=== PATIENT | male | born 1965 ===

== ENCOUNTER 2024-02-03 13:24 | Outpatient (AMB) | payer OTHER, SELFPAY ==
[2024-02-03 13:29] VITALS: BP 112/68; PULSE 88; O2SAT 98
--- NOTE | 2024-02-03 13:29 | MHC.OFFVIS ---
Vital Signs 02/03/24 13:29 Weight 221 lb 9.033 oz BP 112/68 Blood Pressure Location Rt brachial Position Sitting Pulse 88 Pulse Source Pulse Oximeter Pulse Oximetry (%) 98 Oxygen Delivery Method Room Air Intake Visit Reasons: Pulmonary Nodule Allergies No Known Allergies Allergy (Verified 02/03/24 13:34) Medication List - Last Reconciled 02/03/24 by Sherrie Chin LPN albuterol sulfate 90 mcg/actuation 2 puffs inhalation Q4-6H PRN ztotvvcqbb-lrfjpdlar-fynxhtpnl 5-160-12.5 mg 1 tab PO DAILY aspirin (Adult Low Dose Aspirin) 81 mg PO DAILY ezetimibe 10 mg PO DAILY fluticasone propion-salmeterol 250-50 mcg/dose (Advair Diskus) 1 inh inhalation BID metoprolol succinate ER 50 mg PO BID montelukast 10 mg PO BEDTIME rosuvastatin (Crestor) 40 mg PO DAILY HPI Comments Details: The patient is here for a pulmonary follow up visit. He has been doing better. Back 15 months ago he started complainng of exertional SSCP and he ended up requiring Quadruple cardiac bypass surgery. He did well. He continues to exercise reqularly. He does have wheezing at times. Does have a powedered inhaler, Wixela, but does not work well for him. We did review his CT chest deomsontrating small nodules, subcentimeter in size. Also with post operative changes and chronic bronchitis. We will plan to repeat CT chest 1 yr from now. [facility] Medical History (Updated 02/03/24 @ 22:49 by Frankie Gilliam MD) CAD (coronary artery disease) of artery bypass graft Asthma Pulmonary nodules Social History (Updated 02/03/24 @ 13:38 by Sherrie Chin LPN) Patient Tobacco Use Status: Never used Tobacco Review of Systems Const Denies fever(s) Eyes Reports no additional complaints ENT Reports no additional complaints Card Denies chest pain, Denies dyspnea and Denies dyspnea on exertion Resp Denies dyspnea and Denies dyspnea on exertion GI Reports no additional complaints Musc Reports no additional complaints Skin/Breast Denies rash Otto/Lymph Reports no additional complaints Aller/Immun Reports no additional complaints Physical Exam Vital Signs: Last Vital Signs Pulse 88 02/03/24 13:29 BP 112/68 02/03/24 13:29 Pulse Ox 98 02/03/24 13:29 Oxygen Delivery Method Room Air 02/03/24 13:29 Const General: comfortable HEENT Head: Yes normocephalic Neck Neck: Yes supple Chest Chest palpation & inspection: normal inspection of the chest Resp Effort & Inspection: normal respiratory effort Auscultation: clear to auscultation bilaterally Cardio Heart sounds: S1 normal heart sound present and S2 normal heart sound present GI Palpation (GI): Soft to palpation Skin General skin exam: no rashes or lesions noted Extrem General: Yes no clubbing, cyanosis or edema Assessment & Plan Assessment & Plan (1) Pulmonary nodules: Code(s): R91.8 - Other nonspecific abnormal finding of lung field Category: Medical (2) Asthma: Code(s): J45.909 - Unspecified asthma, uncomplicated Category: Medical Qualifiers: Asthma severity: moderate Asthma persistence: persistent Asthma complication type: uncomplicated Qualified Code(s): J45.40 - Moderate persistent asthma, uncomplicated [facility] Orders CT chest wo IV con 1 Year R91.8 - Other nonspecific abnormal finding of lung field Medications: New budesonide-formoterol 160-4.5 mcg/actuation (Symbicort) 2 puffs inhalation BID 30 days 10.2 grams 11RF J44.89 - Other specified chronic obstructive pulmonary disease Coding Level of Care Code New Pt Level 4 (61981) Diagnoses Pulmonary nodules R91.8 Moderate persistent asthma without complication J45.40 Asthma severity: moderate Asthma persistence: persistent Asthma complication type: uncomplicated Time Spent (min) 35
== END 2024-02-03 14:11 | disposition home or self-care (01) ==
PROVIDERS: PCP Internal Medicine; Referring Provider Internal Medicine; Visit Provider Hospitalist
DX: R91.8 Other nonspecific abnormal finding of lung field (principal); J45.40 Moderate persistent asthma, uncomplicated
CPT/HCPCS: 99204

== ENCOUNTER 2025-01-29 10:23 | Outpatient (AMB) | payer OTHER, SELFPAY ==
[2025-01-29 10:26] VITALS: BP 130/72; PULSE 75; O2SAT 96; BMI 29.2
--- NOTE | 2025-01-29 10:26 | A.OFFVIS_ITS ---
Vital Signs 01/29/25 10:26 Height 6 ft 1 in Weight 221 lb 9.033 oz BMI 29.2 BP 130/72 Blood Pressure Location Lt brachial Position Sitting Pulse 75 Pulse Source Pulse Oximeter Pulse Oximetry (%) 96 Oxygen Delivery Method Room Air Intake Visit Reasons: Pulmonary Nodule/CT Chest Follow Up [employer] Required: No Accounts Payable Processor: Accounts Payable Processor offered & declined Allergies No Known Allergies Allergy (Verified 01/29/25 10:28) HPI Comments Details: The patient is here for a pulmonary follow up visit. He has been doing better. Back 15 months ago he started complainng of exertional SSCP and he ended up requiring Quadruple cardiac bypass surgery. He did well. He continues to exe rcise reqularly. He does have wheezing at times. Does have a powedered inhaler, Wixela, but does not work well for him. We did review his CT chest deomsontrating small nodules, subcentimeter in size. Also with post operative changes and chronic bronchitis. We will plan to repeat CT chest 1 yr from now. 01/29/2025 the patient is here for pulmonary follow-up visit. Overall the patient has been doing well. Denies any wheezing or shortness of breath. He does use his inhaler with good effect. Denies any respiratory limitations at this time. He did undergo a CT scan of the chest November 2024 at [facility] which I personally reviewed and I compared to his CAT scan from 2020 from [facility]. His pulmonary nodules appear to be stable and unchanged therefore we do not need any serial CAT scans at this point. Will consider reassessing couple years. Otherwise the patient is doing good he will continue with the current respiratory medications and will follow-up as needed. [facility] Medical History (Updated 02/03/24 @ 22:49 by Frankie Gilliam MD) CAD (coronary artery disease) of artery bypass graft Asthma Pulmonary nodules Social History Patient Tobacco Use Status: Never used Tobacco Review of Systems Const Denies fever(s) Eyes Reports no additional complaints ENT Reports no additional complaints Card Denies chest pain, Denies dyspnea and Denies dyspnea on exertion Resp Denies dyspnea and Denies dyspnea on exertion GI Reports no additional complaints Musc Reports no additional complaints Skin/Breast Denies rash Otto/Lymph Reports no additional complaints Aller/Immun Reports no additional complaints Physical Exam Vital Signs: Last Vital Signs Pulse 75 01/29/25 10:26 BP 130/72 01/29/25 10:26 Pulse Ox 96 01/29/25 10:26 Oxygen Delivery Method Room Air 01/29/25 10:26 BMI result Body Mass Index 29.2 Const General: comfortable HEENT Head: Yes normocephalic Neck Neck: Yes supple Chest Chest palpation & inspection: normal inspection of the chest Resp Effort & Inspection: normal respiratory effort Auscultation: clear to auscultation bilaterally Cardio Heart sounds: S1 normal heart sound present and S2 normal heart sound present GI Palpation (GI): Soft to palpation Skin General skin exam: no rashes or lesions noted Extrem General: Yes no clubbing, cyanosis or edema Assessment & Plan Assessment & Plan (1) Pulmonary nodules: Code(s): R91.8 - Other nonspecific abnormal finding of lung field Category: Medical (2) Asthma: Code(s): J45.909 - Unspecified asthma, uncomplicated Category: Medical Qualifiers: Asthma complication type: uncomplicated Asthma persistence: persistent Asthma severity: moderate Qualified Code(s): J45.40 - Moderate persistent asthma, uncomplicated [facility] Coding Level of Care Code Est Pt Level 4 (19515) Diagnoses Pulmonary nodules R91.8 Moderate persistent asthma without complication J45.40 Asthma complication type: uncomplicated Asthma persistence: persistent Asthma severity: moderate Time Spent (min) 16
== END 2025-01-29 10:52 | disposition home or self-care (01) ==
LOC: HO.HPS 10:24
PROVIDERS: PCP Internal Medicine; Visit Provider Hospitalist
DX: R91.8 Other nonspecific abnormal finding of lung field (principal); J45.40 Moderate persistent asthma, uncomplicated
CPT/HCPCS: 99214